=== PATIENT | male | born 1995 | race Caucasian/White ===

== ENCOUNTER 2018-09-18 18:20 | Emergency (ER) | payer BC, SELFPAY ==
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
== END 2018-09-18 20:35 | disposition home or self-care (01) ==
LOC: ERS 18:20
DX: S16.1XXA Strain of muscle, fascia and tendon at neck level, initial encounter (principal); F17.210 Nicotine dependence, cigarettes, uncomplicated; V89.2XXA Person injured in unspecified motor-vehicle accident, traffic, initial encounter
CPT/HCPCS: 72125

== ENCOUNTER 2018-12-06 16:24 | Emergency (ER) | payer OTHER, SELFPAY ==
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
== END 2018-12-06 17:19 ==
LOC: ERS 16:24
DX: S20.212A Contusion of left front wall of thorax, initial encounter (principal); F17.210 Nicotine dependence, cigarettes, uncomplicated; V89.2XXA Person injured in unspecified motor-vehicle accident, traffic, initial encounter
CPT/HCPCS: 71260; 74177

== ENCOUNTER 2024-05-03 17:59 | Emergency (ER) | payer SELFPAY | END 2024-05-03 19:57 | disposition home or self-care (01) | LOC: ERS 17:59 | DX: B34.9 Viral infection, unspecified (principal); Z20.828 Contact with and (suspected) exposure to other viral communicable diseases; Z87.891 Personal history of nicotine dependence | CPT/HCPCS: 71045; 87428 ==